=== PATIENT | male | born 1990 | race Two or more races ===

== ENCOUNTER 2025-05-24 21:13 | Emergency (ER) | payer MEDICAID, SELFPAY ==
[2025-05-24 21:15] VITALS: BMI 25.8
--- NOTE | 2025-05-24 21:18 | XR_ITS ---
Examination: Degenerative chest 2 views TECHNIQUE: Upright PA and lateral chest 2 views Date and time: May 24, 2025 2127 hours INDICATIONS: Cough and shortness of breath beginning 15 days ago. FINDINGS: Early left perihilar pneumonia Normal heart size The osseous structures are intact IMPRESSION: Early left perihilar pneumonia
--- NOTE | 2025-05-24 21:19 | EKG_ITS ---
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
[2025-05-24 21:58] VITALS: BP 130/78; PULSE 67; RESP 18; TEMP 37; O2SAT 95
[2025-05-24 23:20] LABS: Basophils # (Auto) 0.0 Thou/mm3 (0.0-0.2); Basophils % (Auto) 0 % (0-2.5); Eosinophils # (Auto) 0.3 Thou/mm3 (0.0-0.5); Eosinophils % (Auto) 3 % (0-10); Hematocrit 42.3 % (41.0-53.0); Hemoglobin 14.3 g/dL (13.5-16.0); Immature Granulocytes Auto 0.10 Thou/mm3 (0.00-0.00); Lymphocytes # (Auto) 2.2 Thou/mm3 (1.0-4.8); Lymphocytes % (Auto) 25 % (10-50); Mean Corpuscular HGB Conc 33.8 g/dl (31.0-37.0); Mean Corpuscular Hemoglobin 28.8 pg (25.0-35.0); Mean Corpuscular Volume 85 fL (80-100); Monocytes # (Auto) 0.4 Thou/mm3 (0.0-0.8); Monocytes % (Auto) 5 % (0-12); Neutrophils # (Auto) 5.9 Thou/mm3 (1.8-7.7); Neutrophils % (Auto) 67 % (37-80); Nucleated Red Blood Cell # 0.00 Thou/mm3 (0.00-0.00); Nucleated Red Blood Cell % 0 /100 WBC (0); Platelet Count 539 Thou/mm3 (140-440); RDW Standard Deviation 37.6 fL (35.1-43.9); Red Blood Count 4.97 Miln/mm3 (4.50-5.90); White Blood Count 8.8 Thou/mm3 (3.8-10.6)
[2025-05-24 23:37] LABS: B-Type Natriuretic Peptide < 20 pg/mL (0-100)
[2025-05-24 23:40] LABS: Alanine Aminotransferase 52 U/L (10-49); Albumin, Serum 4.6 gm/dL (3.5-5.0); Albumin/Globulin Ratio 1.4 (1.2-2.2); Alkaline Phosphatase 43 U/L (46-116); Anion Gap 10 (7-16); Aspartate Amino Transferase 36 U/L (0-34); BUN/Creatinine Ratio 13 Ratio (12-20); Bilirubin,Total 0.5 mg/dL (0.3-1.2); Blood Urea Nitrogen 16 mg/dL (9-23); Calcium 9.4 mg/dL (8.3-10.6); Calcium (Corrected) 9.4 mg/dL (8.5-10.1); Carbon Dioxide 25.6 mMol/L (20.0-31.0); Chloride 103 mMol/L (98-107); Creatinine (Component) 1.2 mg/dL (0.6-1.3); Estimated Creatinine Clearance 81.1 mL/min (>60); Globulin 3.4 gm/dL (2.3-3.5); Glucose 99 mg/dL (74-106); Magnesium 2.1 mg/dL (1.6-2.6); Osmolality,Calculated 278 (275-295); Potassium 4.4 mMol/L (3.4-5.1); Sodium 139 mMol/L (136-145); Total Protein 8.0 gm/dL (5.7-8.2); Troponin I < 0.002 ng/mL (0.0-0.045); eGFR > 60 See Note
[2025-05-24 23:42] LABS: D-Dimer 1280 ng/mL (<600)
[2025-05-24 23:47] LABS: INR 1.1 (0.9-1.3); Partial Thromboplastin Time 34.9 Seconds (22.0-36.0); Prothrombin Time 11.6 Seconds (9.0-12.2)
[2025-05-25 00:40] VITALS: BP 131/80; PULSE 73; RESP 17; TEMP 21.1; O2SAT 98
--- NOTE | 2025-05-25 00:43 | EDNOTE_ITS ---
ED Chest Pain RME/HPI General Chief Complaint: Skin/Abscess/Foreign Body Stated Complaint: RASH, COUGH, SOB, CHEST PRESSURE Arrival date/time: 05/24/25 21:13 RME / HPI RME / HPI narrative: DR. GOLDBERG MAIN ED EVALUATION: 34 y/o male with no significant medical Hx presents to ED c/o chest pain with cough and deep inspiration during the night x 2 weeks. Patient also c/o a rash throughout his body. Patient reports having a productive cough and fever over 2 weeks ago. Fever has since subsided. Denies any daily prescriptions. Denies any allergies to medications. No other concerns or complaints expressed at this time. Related Data Previous Rx's ?Medication ?Instructions ?Recorded doxycycline hyclate 100 mg tablet 100 mg PO BID 7 days #14 tabs 05/25/25 Allergies Allergy/AdvReac Type Severity Reaction Status Date / Time No Known Allergies Allergy Verified 05/24/25 21:15 Review of Systems Review of Systems Systems Reviewed: All systems reviewed, normal except as documented ED Exam Narrative Physical exam: Generally the patient is alert in no obvious distress, heart regular rate and rhythm without rubs gallops EXTR sensation equal bilaterally abdomen soft bowel sounds present nondistended nontender extremities show mild macular papular rash. No erythema nodosum. No vesicles papules or pustules seen. Neurologic exam no focal motor or sensory deficit cranial nerves II through XII grossly intact Course Course Course Narrative: CXR is ordered for determining the etiology of shortness of breath. Quality Measures none Orders Category Date Time Status EKG (ED ONLY) *Do not use* NOW Care 05/24/25 21:19 Completed CXR2 [XR chest 2V] Stat Exams 05/24/25 21:18 Completed EKG (ED Only) Stat Exams 05/24/25 21:19 Draft B-Type Natriuretic Peptide Stat Lab 05/24/25 23:08 Completed CBC Stat Lab 05/24/25 23:08 Completed Comprehensive Metabolic Panel Stat Lab 05/24/25 23:08 Completed D-Dimer Stat Lab 05/24/25 23:08 Completed Drug Screen,Urine Stat Lab 05/24/25 22:49 Ordered Magnesium Stat Lab 05/24/25 23:08 Completed Partial Thromboplastin Time Stat Lab 05/24/25 23:08 Completed Prothrombin Time with INR Stat Lab 05/24/25 23:08 Completed Troponin I Stat Lab 05/24/25 23:08 Completed UA, C/S IF [Urinalysis, C/S if Indicated] Stat Lab 05/24/25 22:50 Ordered Vital Signs Vital signs: Vital Signs Temperature 98.6 F 05/24/25 21:58 Pulse Rate 67 05/24/25 21:58 Respiratory Rate 18 05/24/25 21:58 Blood Pressure 130/78 05/24/25 21:58 Pulse Oximetry (%) 95 05/24/25 21:58 Oxygen Delivery Method Room Air 05/24/25 21:58 Chest Pain MDM Narrative MDM Narrative:: Scribe Attestation: Abi Parker, am scribing for and in the presence of Dr. Goldberg. Provider Notation: Although this document has been carefully reviewed, there may still be some phonetic and other typographical errors.? These errors are purely grammatical due to imperfections in the software program and should not be construed in any way to? compromise the substance of the patient's medical care during this visit. Patient's O2 saturation on room air was at 100%. Chest x-ray shows an early left perihilar pneumonia. Patient will be started on doxycycline to be taken as prescribed. He will need to follow-up with his regular doctor to make sure that the symptoms of cough and shortness of breath resolve with antibiotic treatment. Patient data External records reviewed:: [facility] previous records (No recent ED records available for review.) Clinical information provided by:: patient Social determinants that could affect healthcare access:: none Patient has the following chronic illnesses:: None reported. How is presenting disease/condition affected by chronic disease/condition?: no chronic disease Evaluation data The following diagnostics were reviewed and interpreted by me:: lab results, radiology exam(s) and EKG tracing(s) Lab and/or radiology exams considered but not ordered:: None Interpretation Summary: RADIOLOGY: Chest X-Ray: FINDINGS: Early left perihilar pneumonia Normal heart size The osseous structures are intact IMPRESSION: Early left perihilar pneumonia Medications / Prescriptions Medications or Prescriptions considered but not ordered:: None Medication administrations:: See above if any Consultations Consultation(s) initiated? (list below): No Diagnosis Chest Pain Differential Diagnosis: pneumothorax, stable angina, unstable angina pectoris, atypical chest pain, st elevation myocardial infarction and other (PE, PNA, Bronchitis) Most likely diagnosis given after review of the tests above:: none Admission Indicated Admission indicated?: not indicated Explain why admission is indicated or not indicated:: Patient does not meet admission criteria. Admission Request Was there a request for admission?: No Disposition Plan Disposition Plan: Discharge Discharge Attestation Discharge Attestation: The patient and all family members were given an opportunity to ask questions and understood the discharge instructions. Discharge instructions specifically effects, indications for sooner follow up or return to the emergency department, and the expected course of current diagnosis. Patient condition: Stable Discharge Plan Plan Patient Disposition: HOME (Self Care) Prescriptions/Referrals Prescriptions/Med Rec: New doxycycline hyclate 100 mg tablet 100 mg PO BID 7 Days Qty: 14 0RF Referrals: No Primary/Family,Physician [Primary Care Provider] - In 1 week Problem List Clinical Impression: Pneumonia Patient/Caregiver Discharge Instructions Additional Instructions: Take the antibiotic as prescribed. Follow-up with your doctor to make sure the symptoms of pneumonia such as cough and shortness of breath resolve with the antibiotic use. Print Language: Greenlandic Stand Alone Forms: Joelle Award Info., Patient Portal Info Letter
== END 2025-05-25 01:04 | disposition home or self-care (01) ==
PROVIDERS: Emergency Provider Emergency Medicine
DX: J18.9 Pneumonia, unspecified organism (principal); R07.89 Other chest pain
CPT/HCPCS: 36415; 71046; 80053; 80307; 81001; 83735; 83880; 84484; 85025; 85379; 85610; 85730; 93005; 99283